=== PATIENT | male | born 1960 | race Caucasian/White ===

== ENCOUNTER 2019-02-09 20:09 | Emergency (ER) | payer BC ==
[2019-02-09 20:40] VITALS: BP 136/81
--- NOTE | 2019-02-09 20:58 | UC ---
Truncal Trauma HPI - HPI Summary HPI Summary: Pt was playing volleyball tonight when another player hit pt in right mid medial chest. Pt presents with c/o right mid, medial chest pain s/p "getting shoulder in chest" by another volley player one hour prior to arrival. - History Of Current Complaint Chief Complaint: UCTrauma Stated Complaint: RIB INJURY Time Seen by Provider: 02/09/19 20:32 Hx Obtained From: Patient Onset/Duration: Sudden Onset, Still Present Onset Of Pain: Immediate Severity Initially: Moderate Severity Currently: Mild Pain Intensity: 7 Mechanism Of Injury: Direct Blow Aggravating Factor(s): Movement, Deep Breathing, Cough Alleviating factor(s): Rest Associated Signs And Symptoms: Positive: Chest Pain - Allergies/Home Medications Allergies/Adverse Reactions: Allergies Allergy/AdvReac Type Severity Reaction Status Date / Time aspirin Allergy See Comment Verified 02/09/19 20:41 Home Medications: Home Medications Glucosam/Chondr/Collagn/Hyalur [Th Glucosamine/Chondroiti] 1 cap PO DAILY [History Confirmed 02/09/19] Loratadine [Claritin 10 MG CAP] 10 mg PO DAILY 02/09/19 [History Confirmed 02/09] PMH/Surg Hx/FS Hx/Imm Hx Previously Healthy: Yes - Surgical History Surgical History: Yes Surgery Procedure, Year, and Place: May 2011 - heart valve replaced ; aortic. Achilles Tendon Repair, ~15 yers ago - Family History Known Family History: Positive: Hypertension - Social History Alcohol Use: None Substance Use Type: None Smoking Status (MU): Never Smoked Tobacco Have You Smoked in the Last Year: No Review of Systems All Other Systems Reviewed And Are Negative: Yes Constitutional: Positive: Negative Skin: Positive: Negative Eyes: Positive: Negative ENT: Positive: Negative Respiratory: Positive: Negative Cardiovascular: Positive: Chest Pain - non cardiac Gastrointestinal: Positive: Negative Genitourinary: Positive: Negative Motor: Positive: Negative Neurovascular: Positive: Negative Musculoskeletal: Positive: Arthralgia, Myalgia Neurological: Positive: Negative Psychological: Positive: Negative Is Patient Immunocompromised?: No Physical Exam Triage Information Reviewed: Yes Appearance: Well-Appearing, No Pain Distress Vital Signs: Initial Vital Signs Temp 98.0 F 02/09/19 20:33 Pulse 69 02/09/19 20:33 Resp 16 06/19/19 20:33 BP 136/81 02/09/19 20:33 Pulse Ox 97 02/09/19 20:33 Eye Exam: Normal ENT Exam: Normal Dental Exam: Normal Neck exam: Normal Respiratory: Positive: Normal breath sounds Cardiovascular Exam: Normal Musculoskeletal Exam: Normal Musculoskeletal: Positive: Strength Intact Neurological Exam: Normal Psychological Exam: Normal Skin Exam: Normal Truncal Trauma Course/Dx - Differential Dx/Diagnosis Differential Diagnosis/HQI/PQRI: Chest Wall Contusion, Rib Fracture Provider Diagnosis: Contusion of right chest wall Discharge - Sign-Out/Discharge Documenting (check all that apply): Patient Departure All imaging exams completed and their final reports reviewed: No - Discharge Plan Condition: Stable Disposition: HOME Patient Education Materials: Rib Contusion (ED) Referrals: Al Ceballos MD [Primary Care Provider] - If Needed Additional Instructions: Please follow up with your PCP as needed. If your symptoms do not improve or if they worsen please seek care immediately at the closest health care facility. - Billing Disposition and Condition Condition: STABLE Disposition: Home
--- NOTE | 2019-02-10 08:01 | UC ---
- Progress Note Progress Note: No evidence for fracture - No change in initial management. - EKG/XRAY/CT Xray Comments: right rib: no evidence for fracture Course/Dx - Diagnoses Provider Diagnoses: Contusion of right chest wall Discharge - Sign-Out/Discharge Documenting (check all that apply): Post-Discharge Follow Up All imaging exams completed and their final reports reviewed: Yes - Discharge Plan Condition: Stable Disposition: HOME Patient Education Materials: Rib Contusion (ED) Referrals: Al Ceballos MD [Primary Care Provider] - If Needed Additional Instructions: Please follow up with your PCP as needed. If your symptoms do not improve or if they worsen please seek care immediately at the closest health care facility. - Billing Disposition and Condition Condition: STABLE Disposition: Home
== END 2019-02-09 21:08 | disposition home or self-care (01) ==
LOC: UCEAST 20:09
DX: S20.211A Contusion of right front wall of thorax, initial encounter (principal); W21.06XA Struck by volleyball, initial encounter; Y93.68 Activity, volleyball (beach) (court); Y92.9 Unspecified place or not applicable
CPT/HCPCS: 99212; G0463

== ENCOUNTER 2021-02-22 20:53 | Inpatient (IN) ==
[2021-02-22] MEDS ORDERED: NS 0.9% 1000 ml BAG 1,000 ML IV ONE (21:44)
[2021-02-22] MEDS ORDERED: Morphine 2 MG/ML SYRINGE IV PRN (22:39)
[2021-02-22] MEDS ORDERED: Warfarin per PHARMACY **NOTE FOLLOW UP SCH (23:00)
[2021-02-22] MEDS ORDERED: Vancomycin per Pharmacy 1 EA NOTE FOLLOW UP SCH (23:45)
[2021-02-22] MEDS ORDERED: Vancomycin 1,500 MG in NS 0.9% 250 ml 250 ML IVPB ONE (23:45)
[2021-02-23] MEDS: Cefepime 2 GM in Dextrose 2 GM/50 ML BAG IV SCH ×3 (00:52→21:33)
[2021-02-23] MEDS: DOXYcycline 100 MG in NS 0.9% 250 ml 250 ML IVPB SCH ×3 (01:37→21:41)
[2021-02-23] MEDS: Enoxaparin 100 MG/ML SYR SUBCUT SCH ×2 (04:02→21:36)
[2021-02-23 08:00] LABS: ABS Monocytes 0.6 10^3/ul (0-0.8); ABS Neutrophils 5.3 10^3/ul (1.5-7.7); Eosinophil % 0.1 %; Hematocrit 37 % (42-52); Hemoglobin 13.1 g/dL (14.0-18.0); Lymphocyte % 14.9 %; Mean Corpuscular HGB Conc 35 g/dL (31-36); Mean Corpuscular Hemoglobin 33 pg (27-31); Mean Corpuscular Volume 95 fL (80-94); Mean Platelet Volume 8.7 fL (7.4-10.4); Platelet Count 148 10^3/uL (150-450); Red Blood Count 3.92 10^6 /uL (4.18-5.48); Red Cell Distribution Width 14 % (10-15)
[2021-02-23] MEDS: Multivitamins/Minerals TAB PO SCH (08:16)
[2021-02-23 08:18] LABS: Albumin 3.7 g/dL (3.2-5.2); Albumin/Globulin Ratio 1.2 (1-3); C Reactive Protein 209.58 mg/L (<8.01); Calcium 8.8 mg/dL (8.6-10.3); EGFR African American 94.9 (>60); EGFR Non-African American 78.4 (>60); Potassium 4.2 mmol/L (3.5-5.0); Total Protein 6.7 g/dL (6.4-8.9)
[2021-02-23 08:20] LABS: INR 1.59 (0.86-1.15)
[2021-02-23] MEDS ORDERED: Heparin 5000 UNITS/ML 1 mL VIAL SUBCUT SCH (09:00)
[2021-02-23] MEDS: Vancomycin 1,500 MG in NS 0.9% 250 ml 250 ML IVPB SCH (13:29)
[2021-02-23] MEDS ORDERED: Iohexol 300 (CONTRAST) 10 ML SDV IV ONE (14:19)
[2021-02-23] MEDS: Warfarin DAILY REMINDER **NOTE FOLLOW UP SCH (17:37)
[2021-02-24] MEDS: Vancomycin 1,500 MG in NS 0.9% 250 ml 250 ML IVPB SCH ×2 (01:13→13:41)
[2021-02-24 05:47] LABS: ABS Eosinophils 0.1 10^3/ul (0-0.6); ABS Lymphocytes 2.2 10^3/ul (1.0-4.8); ABS Monocytes 0.7 10^3/ul (0-0.8); ABS Neutrophils 2.1 10^3/ul (1.5-7.7); Eosinophil % 1.8 %; Hematocrit 38 % (42-52); Lymphocyte % 42.5 %; Mean Corpuscular HGB Conc 34 g/dL (31-36); Mean Corpuscular Hemoglobin 33 pg (27-31); Mean Corpuscular Volume 95 fL (80-94); Mean Platelet Volume 8.3 fL (7.4-10.4); Nucleated Red Blood Cells % 0.1; Platelet Count 179 10^3/uL (150-450); Red Blood Count 3.99 10^6 /uL (4.18-5.48); Red Cell Distribution Width 14 % (10-15); White Blood Count 5.2 10^3/uL (3.5-10.8)
[2021-02-24 05:56] LABS: INR 1.53 (0.86-1.15)
[2021-02-24 06:03] LABS: Albumin 3.5 g/dL (3.2-5.2); Albumin/Globulin Ratio 1.2 (1-3); Calcium 8.9 mg/dL (8.6-10.3); Direct Bilirubin 0.2 mg/dL (0.03-0.18); EGFR African American 90.6 (>60); EGFR Non-African American 74.9 (>60); Indirect Bilirubin 0.5 mg/dL (0.3-1.0); Potassium 4.3 mmol/L (3.5-5.0); Total Bilirubin 0.7 mg/dL (0.2-1.0); Total Protein 6.5 g/dL (6.4-8.9)
[2021-02-24] MEDS: Multivitamins/Minerals TAB PO SCH (08:16)
[2021-02-24] MEDS: Enoxaparin 100 MG/ML SYR SUBCUT SCH (08:16)
[2021-02-24] MEDS: Cefepime 2 GM in Dextrose 2 GM/50 ML BAG IV SCH (08:16)
[2021-02-24] MEDS: DOXYcycline 100 MG in NS 0.9% 250 ml 250 ML IVPB SCH (09:38)
[2021-02-24] MEDS ORDERED: Vancomycin Trough Check NOTE FOLLOW UP ONE (12:30)
[2021-02-24 12:59] LABS: EGFR African American 93.8 (>60); EGFR Non-African American 77.5 (>60)
[2021-02-24 13:28] LABS: Vancomycin Trough 11.9 mcg/mL
[2021-02-24 16:04] VITALS: BP 120/82
[2021-02-24] MEDS: Warfarin DAILY REMINDER **NOTE FOLLOW UP SCH (16:49)
[2021-02-26 18:14] LABS: Anaplasma phagocytophilum Negative (Negative); B. miyamotoi PCR, B Negative (Negative); Babesia divergens/MO-1 Negative (Negative); Babesia ducani Negative (Negative); Ehrlichia chaffeensis Negative (Negative); Ehrlichia ewingii/canis Negative (Negative); Ehrlichia muris eauclairensis Negative (Negative)
== END 2021-02-24 17:30 | disposition home or self-care (01) | DRG 720 ==
LOC: ED 20:53 → MED 02-23 00:03
PROVIDERS: ADMIT Hospitalist; ATTEND Student in an Organized Health Care Education/Training Program